=== PATIENT | male | born 2000 ===

== ENCOUNTER 2020-04-20 03:54 | Emergency (ER) | payer SELFPAY ==
[~2020-04-20] VITALS: Ht 182.9 cm; Wt 100.0 kg
[2020-04-20 04:02] VITALS: BP 114/64
--- NOTE | 2020-04-20 04:22 | NUR ---
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
== END 2020-04-20 04:25 | disposition left against medical advice (07) ==
LOC: ED 04:14
DX: R07.9 Chest pain, unspecified (principal); Z53.21 Procedure and treatment not carried out due to patient leaving prior to being seen by health care provider
CPT/HCPCS: 93005